=== PATIENT | female | born 1955 | race Caucasian/White ===

== ENCOUNTER → 2018-03-19 | Day surgery (SDC) | payer MEDICARE, BC ==
[~2018-03-19] MED LIST: Lactated Ringers 1,000 ML IV SCH; Propofol 200 MG/20 ML SDV IV ONE
--- NOTE | 2018-03-19 10:07 | OR ---
DATE OF OPERATION: 03/19/2018 PREOPERATIVE DIAGNOSIS: SCREENING COLONOSCOPY. POSTOPERATIVE DIAGNOSIS: SCREENING COLONOSCOPY. SURGEON: Denys Tuttle MD PROCEDURE: FULL-LENGTH COLONOSCOPY. ANESTHESIA: PROJECT DEVELOPMENT ENGINEER. COMPLICATIONS: None. SPECIMEN: None. FINDINGS: 1. Full-length colonoscopy. 2. Perez diverticulosis, mild to moderate. RECOMMENDATIONS: Routine colonoscopy every 10 years. INDICATIONS: The patient was in for routine physical. She is due for a screening colonoscopy. DESCRIPTION OF PROCEDURE: The patient was prepped and draped, placed in the left lateral decubitus position. A lubricated Olympus colonoscope was inserted and easily advanced to the cecum. Direct visualization of the ileocecal valve and appendiceal orifice was accomplished. Bowel prep was adequate. Upon withdrawal of the scope, the patient does have perez diverticulosis with diverticula present in the deep right colon. It is mild in most areas and more moderate in the sigmoid as expected. Throughout the entire colon, I could find no signs of any polyps, mass, ulcerations, or bleeding sites. No vascular abnormalities or signs of colitis. The rectal vault itself was benign. Retroflexion was difficult due to the shallowness of the vault, but upon withdrawal direct exam showed no perianal lesions. Air was suctioned from the colon and the scope removed without complication. CATHY/ELKE /[id number]
== END ==
LOC: CC.SDS 07:54
PROVIDERS: ATTEND Family Medicine
DX: Z12.11 Encounter for screening for malignant neoplasm of colon (principal); K57.30 Diverticulosis of large intestine without perforation or abscess without bleeding; E78.5 Hyperlipidemia, unspecified; G62.9 Polyneuropathy, unspecified; D51.0 Vitamin B12 deficiency anemia due to intrinsic factor deficiency; Z79.899 Other long term (current) drug therapy
CPT/HCPCS: G0121; J2704; J7120; 00811

== ENCOUNTER → 2024-08-30 | Day surgery (SDC) | payer MEDICARE, BC ==
[~2024-08-30] MED LIST changes: -Lactated Ringers 1,000 ML IV SCH; +Lidocaine 1% 5 ML VIAL ONE; -Propofol 200 MG/20 ML SDV IV ONE
[2024-08-30] MEDS: Lidocaine 1% 5 ML VIAL INJECT ONE ×2 (12:00→12:20)
== END ==
LOC: CC.SDS 10:38
PROVIDERS: ATTEND Family Medicine
DX: I87.2 Venous insufficiency (chronic) (peripheral) (principal); I83.813 Varicose veins of bilateral lower extremities with pain; E78.5 Hyperlipidemia, unspecified; Z79.899 Other long term (current) drug therapy
CPT/HCPCS: C1888; J2003